=== PATIENT | female | born 1980 | race African-American/Black ===

== ENCOUNTER 2024-10-30 17:40 | Emergency (ER) | payer OTHER, SELFPAY ==
--- OUTSIDE RECORDS SUMMARY | 2024-10-30 17:43 | XMS_ITS | Clinical Summary ---
Author Organization [facility] Address [address] [place] [address] Care Team Providers Care Author'S Agent Name Role Phone Yazmin Ibarra MD Primary Care Provider [phone] Allergies No known active allergies Medications No known medications Active Problems No known active problems Social History Tobacco Use Types Packs/Day Years Used Date Smoking Tobacco: Never Smokeless Tobacco: Never Alcohol Use Standard Drinks/Week Comments No 0 (1 standard drink = 0.6 oz pur e alcohol) Comments Unknown Sex and Gender Information Value Date Recorded Sex Assigned at Not on file Legal Sex Female 5:19 PM CDT Gender Identity Not on file Sexual Orientation Not on file Last Filed Vital Signs Vital Sign Reading Time Taken Comments Blood Pressure 136/88 08/04/2017 7:09 PM CDT Pulse 67 08/04/2017 7:09 PM CDT Temperature 37.1 C (98.8 F) 08/04/2017 7:09 PM CDT Respiratory Rate 16 08/04/2017 7:09 PM CDT Oxygen Saturation 100% 08/04/2017 7:09 PM CDT Inhaled Oxygen Concentration - - Weight 54.4 kg (120 lb) 08/04/2017 7:09 PM CDT Height 165.1 cm (5' 5) 08/04/2017 7:09 PM CDT Body Mass Index 19.97 08/04/2017 7:09 PM CDT Plan of Treatment Health Maintenance Due Date Last Done Comments Cervical Cancer Screening Pa p Smear (Age 30 to 64) Every 3 Years 1980 Annual Physical 02/04/1983 Hepatitis C 02/04/1998 DTaP, Tdap and Td Vaccines ( 1 - Tdap) 02/04/1999 Hepatitis B Vaccines (1 of 3 - 19+ 3-dose series) 02/04/1999 HPV Vaccines (1 - 3-dose SCD M series) 02/04/2007 Cervical Cancer Screening Pa p with HPV Testing (Age 30 to 64) Every 5 Years 02/04/2010 Cervical Cancer Screening with HPV 02/04/2010 Mammogram Screening 2020 COVID-19 Vaccine (2023-2 5 season) 2023 Meningococcal B Vaccine Aged Out No l onger eligible based on patient's age to complete this topic Meningococcal Vaccine Aged Out No mariana pallavi eligible based on patient's age to complete this topic Pneumococcal Vaccine: Pediat rics (0 to 5 Years) and At-Risk Patients (6 to 49 Years) Aged Out No longer eligible b ased on patient's age to complete this topic RSV Immunizations Under 20 Months Aged Out No longer eligible based on patient's age to complete this topic Insurance Care Teams Author'S Agent Relationship Specialty Start Date End Date Yazmin Ibarra MD PCP - General 07/22/16
--- OUTSIDE RECORDS SUMMARY | 2024-10-30 17:43 | XMS_ITS | Clinical Summary ---
Author Organization [facility] Address [address] [place] [address] Care Team Providers Care Poultry Field Service Technician Name Role Phone Unavailable Primary Care Provider Unavailabl e Source Comments [facility],non-owned Affiliates and Associated Physician Practices is amultiple site organization consisting of ambulatory clinics and hospital sitesin [place], [place], [place] and [place]. This disclosure is being madepursuant to the Care Everywhere program and may not contain all information available regarding this patient. Last updated 17.[facility] Allergies No known active allergies Social History Tobacco Use Types Packs/Day Years Used Date Smoking Tobacco: Never Assessed Comments Unknown Sex and Gender Information Value Date Recorded Sex Assigned at Not on file Legal Sex Female 6:28 AM WORKERS COMPENSATION COORDINATOR Gender Identity Not on file Sexual Orientation Not on file Last Filed Vital Signs Vital Sign Reading Time Taken Comments Blood Pressure 129/77 09/23/2018 11:42 AM CDT Pulse 79 09/23/2018 11:42 AM CDT Temperature 37.1 C (98.7 F) 09/23/2018 8:51 AM CDT Respiratory Rate 14 09/23/2018 11:42 AM CDT Oxygen Saturation 100% 09/23/2018 11:27 AM CDT Inhaled Oxygen Concentration - - Weight 54 kg (119 lb) 09/23/2018 8:51 AM CDT Height 165.1 cm (5' 5) 09/23/2018 8:51 AM CDT Body Mass Index 19.8 09/23/2018 8:51 AM CDT Plan of Treatment Health Maintenance Due Date Last Done Comments LIPID TESTING 1980 MAMMOGRAM 1980 HIV SCREENING 02/04/1995 HEPATITIS C SCREENING 01/31/1998 DTAP/TDAP/TD VACCINES (1 - Tdap) 02/04/1999 HEPATITIS B VACCINE (1 of 3 - 19+ 3-dose series) 02/04/1999 HPV VACCINE (1 - 3-dose SCDM series) 02/04/2007 COVID-19 VACCINE (1 - 4-2 5 season) 2023 DEPRESSION SCREENING 04/07/2024 INFLUENZA VACCINE (#1) 2024 ZOSTER VACCINE (1 of 2) 02/04/2030 HIB VACCINE Aged Out No longer eligi ble based on patient's age to complete this topic MENINGOCOCCAL (Group B) VACC INE SHARED DECISION-MAKING Aged Out No longer eligibl e based on patient's age to complete this topic MENINGOCOCCAL GROUPS A/C/Y/W VACCINE Aged Out No longer eligible b ased on patient's age to complete this topic PNEUMOCOCCAL VACCINE Aged Out No long er eligible based on patient's age to complete this topic Insurance MEDICAID - [place]
--- OUTSIDE RECORDS SUMMARY | 2024-10-30 17:43 | XMS_ITS | Clinical Summary ---
Author Organization [facility] Care Team Providers Care Back Wedger Name Role Phone Unavailable Primary Care Provider Unavailabl e Social History Tobacco Use Types Packs/Day Years Used Date Smoking Tobacco: Never Assessed Comments Unknown Sex and Gender Information Value Date Recorded Sex Assigned at Not on file Legal Sex Female 1:26 PM RESIDENTIAL MENTAL HEALTH WORKER Gender Identity Not on file Sexual Orientation Not on file Plan of Treatment Health Maintenance Due Date Last Done Comments Hepatitis C Virus (HCV) Screening 1980 TdaP Immunization 1980 Human Papillomavirus (HPV) Immunization (1 - 3-dose series) 02/04/1995 Hepatitis B Immunization (1 of 3 - 19+ 3-dose series) 02/04/1999 Pap Smear 02/04/2001 Cervical Cancer Screening (CCS) 02/04/2010 HPV/Cotest 02/04/2010 SARS-COV-2 Immunization (2023- season) 2023 03/20/2021, 02/27/2021 Influenza Immunization (#1) 2024 Respiratory Syncytial Virus (RSV) Immunization (Adult) (1 - 1-dose 75+ series) 02/04/2055 Meningococcal Immunization (ACWY) Aged Out No longer eligible b ased on patient's age to complete this topic Pneumococcal Immunization Combined Aged Out No longer eligible b ased on patient's age to complete this topic Rotavirus Immunization Aged Out No lo nger eligible based on patient's age to complete this topic
--- OUTSIDE RECORDS SUMMARY | 2024-10-30 17:43 | XMS_ITS | Clinical Summary ---
Author Organization [facility] Address [address] [place] [address] Care Team Providers Care Vp Customer Development Name Role Phone Yazmin Ibarra MD Primary Care Provider [phone] Allergies No known active allergies Medications ondansetron (ZOFRAN) 4 mg tablet Take 1 tablet (4 mg total) by mouth every 6 (six) hours 12 tablet 1 Active EluRyng 0.12-0.015 mg/24 hr vaginal ring UNWRAP AND INSERT 1 RING VAGINALLY EVERY MONTH 2 Active cyclobenzaprine (FLEXERIL) 10 mg tablet Take 1 tablet (10 mg total) by mouth 2 (two) times a day as needed for muscle spasms 20 tablet 4 Active Additional Information Patient not taking.Reported on 11/21/2023 ketorolac (TORADOL) 10 mg tablet Take 1 tablet (10 mg total) by mouth every 6 (six) hours as needed for pain 20 tablet 4 Active Active Problems Problem Noted Date Diagnosed Date 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 Assessment & Plan (11/21/2023 5:30 PM CDT): Likely Started on BSABX to cover for possible infected underlying cyst or abscess Referral placed to ENT Warm compresses ER for fevers, worsening swelling, redness, drainage, Rash of both hands 06/13/2022 Assessment & Plan (06/13/2022 11:11 AM PICK UP): Macular lesions bilateral palms diffusely scattered, r/o syphilis No viral prodrome or symptoms, sick contacts or recent travel Will order RPR, HIV, Hepatitis panel, gonorrhea/chlamydia/trich urine If RPR positive, will have patient follow up with PCP for antibiotic treatment Follow up with PCP if symptoms persist Go to the ER if you develop fever, chills, night sweats, anorexia, worsening rash, headaches, confusion, vision or gait changes Rash of both feet 06/13/2022 Assessment & Plan (06/13/2022 11:11 AM PICK UP): Macular lesions bilateral soles diffusely scattered, r/o syphilis No viral prodrome or symptoms, sick contacts or recent travel Will order RPR, HIV, Hepatitis panel, gonorrhea/chlamydia/trich urine If RPR positive, will have patient follow up with PCP for antibiotic treatment Follow up with PCP if symptoms persist Go to the ER if you develop fever, chills, night sweats, anorexia, worsening rash, headaches, confusion, vision or gait changes 05/11/2012 Resolved Problems Problem Noted Date Diagnosed Date Resolved Date Popping of right ear 11/21/2023 024 Social History Tobacco Use Types Packs/Day Years Used Date Smoking Tobacco: Never Tobacco Cessation:Counseling Given: Not Answered Alcohol Use Standard Drinks/Week Comments Never 0 (1 standard drink = 0.6 oz pur e alcohol) Personal Safety Answer Date Recorded Have you ever been in or are you currently in a harmful physical or emotional relationship or is someone making you feel afraid or unsafe? Denies 06/20/2024 Comments No Sex and Gender Information Value Date Recorded Sex Assigned at Not on file Legal Sex Female 1:37 AM PICK UP Gender Identity Not on file Sexual Orientation Not on file Obstetrics History Last Filed Vital Signs Vital Sign Reading Time Taken Comments Blood Pressure 168/99 06/20/2024 6:07 PM CDT Pulse 84 06/20/2024 6:07 PM CDT Temperature 37 C (98.6 F) 06/20/2024 6:07 PM CDT Respiratory Rate 18 06/20/2024 6:07 PM CDT Oxygen Saturation 98% 06/20/2024 6:07 PM CDT Inhaled Oxygen Concentration - - Weight 60.9 kg (134 lb 4.2 oz) 06/20/2024 6:07 P M CDT Height 165.1 cm (5' 5) 06/20/2024 6:07 PM CDT Body Mass Index 22.34 06/20/2024 6:07 PM CDT Plan of Treatment Health Maintenance Due Date Last Done Comments Breast Cancer Screening-Mammogram 1980 Cervical Cancer Screening 1980 Depression Screening 1980 DTaP/Tdap/Td Vaccine (1 - Tdap) 02/04/1991 Varicella Vaccines (1 of 2 - 13+ 2-dose series) 02/04/1993 Hepatitis B Screening 02/04/1998 Regular Well Visit/Exam 18-64 02/04/1998 HPV Vaccines (1 - 3-dose SCD M series) 02/04/2007 Covid-19 Vaccine ( - 2023-2 5 season) 2023 03/20/2021, 02/27/2021 Influenza Vaccine (#1) 2024 Hepatitis C Screening Completed 06/13/2022 Pneumococcal vaccine <65 Aged Out No longer eligible based on patient's age to complete this topic Procedures Procedure Name Priority Date/Time Associated Diagnosis Comments HEPATITIS PANEL, ACUTE Routine 06/13/2022 11:48 AM PICK UP Rash of both hands Rash of both feet from Last 3 Months or Most Recently Relevant to Health Maintenance Results * Hepatitis panel, acute (06/13/2022 11:48 AM PICK UP) Hep A IgM Nonreactive Nonreactive FREDI Comment: Interpretive Data: If Hep A IgM Ab is reported as Equivocal, a new sample should be drawn in two weeks for testing. Current interpretive data was last revised on 19. Hep B core IgM Nonreactive Nonreactive FREDI Comment: Interpretive Data If HepB Core IgM Ab is reported as Equivocal, a new sample should be drawn in two weeks for testing. Current interpretive data was last revised on 19. Hep C Ab Nonreactive Nonreactive FREDI Comment: Interpretive Data Nonreactive: Antibodies to HCV not detected. Does NOT exclude the possibility of recent exposure to HCV. Equivocal: Equivocal for HCV antibodies. Supplemental molecular testing will be automatically performed to determine infection status in accordance with current CDC screening recommendations. Reactive: Positive for HCV antibodies. This may represent current or past HCV infection. Supplemental molecular testing will be automatically performed to determine current infection status in accordance with current CDC screening recommendations. Interpretive data was last revised on 2019. HepBsAg Nonreactive Nonreactive FREDI PARDO Blood 06/13/2022 11:4 8 AM PICK UP 06/13/2022 4:49 PM PICK UP [facility] MICROBIOLOGY - GENERAL O RDERABLES Final Result FREDI [address] Department [place] [address] from Last 3 Months or Most Recently Relevant to Health Maintenance Insurance [facility] Care Teams Vp Customer Development Relationship Specialty Start Date End Date Yazmin Ibarra MD [address] [place] [address] PCP - General 09/22/18
--- OUTSIDE RECORDS SUMMARY | 2024-10-30 17:43 | XMS_ITS | Referral Summary ---
Author Organization [facility] Address [address] [place] [address] Care Team Providers Care Chain Splitter Name Role Phone Yazmin Ibarra MD Primary Care Provider [phone] Allergies No known active allergies Medications ondansetron [...] 06/13/2022 Assessment & Plan (06/13/2022 11:11 AM SAFE TECHNICIAN): Macular lesions bilateral palms diffusely scattered, r/o [...] 06/13/2022 Assessment & Plan (06/13/2022 11:11 AM SAFE TECHNICIAN): Macular lesions bilateral soles diffusely scattered, r/o [...] on file Legal Sex Female 1:37 AM SAFE TECHNICIAN Gender Identity Not on file Sexual Orientation [...] 06/20/2024 6:07 PM CDT Plan of Treatment Not on file Procedures Procedure Name Priority Date/Time Associated Diagnosis Comments HEPATITIS PANEL, ACUTE Routine 06/13/2022 11:48 AM SAFE TECHNICIAN Rash of both hands Rash of both feet from Last 3 Months or Most Recently Relevant to Health Maintenance Results * Hepatitis panel, acute (06/13/2022 11:48 AM SAFE TECHNICIAN) Hep A IgM Nonreactive Nonreactive FREDI Comment: [...] revised on 2019. HepBsAg Nonreactive Nonreactive [facility] Blood 06/13/2022 11:4 8 AM SAFE TECHNICIAN 06/13/2022 4:49 PM SAFE TECHNICIAN us [facility] MICROBIOLOGY - GENERAL O RDERABLES Final Result [facility] [address] Department of Laboratories [place], [place] [id number] from Last 3 Months or Most Recently Relevant to Health Maintenance Insurance [facility] Care Teams Chain Splitter Relationship Specialty Start Date End Date Yazmin Ibarra MD [address] [place] [address] PCP - General 09/22/18
[2024-10-30 17:57] VITALS: BP 160/117; PULSE 95; RESP 16; TEMP 36.4; O2SAT 100
--- NOTE | 2024-10-30 18:39 | ED.PSYCH ---
HPI - Psych General Chief Complaint: Psychiatric Symptoms Stated Complaint: I feel like I'm having a mental breakdown Time Seen by Provider: 10/30/24 18:20 Source: patient and RN notes reviewed Mode of arrival: ambulatory Limitations: no limitations History of Present Illness HPI Narrative: 44 y/o AAF in the ED for feelings of depression. Pt states she has had numerous stressors over the last 3-4 months. Had a cousin diagnosed w/ cancer, recently bought a house, broke up w/ her fiance. Pt states she had a singular bout of uncontrollable crying and thought she needed to be seen. Pt states she thinks the symptoms have resolved at this time, feels she thinks she needed to have a good cry. Pt denies SI/HI, denies hx of depression or other MH conditions. Pt was being prescribed a medicine briefly for anxiety over a year ago, but only took med a couplke times before stopping. Pt denies seeing MH provider or therapist. Related Data Allergies Allergy/AdvReac Type Severity Reaction Status Date / Time No Known Allergies Allergy Verified 10/30/24 18:02 Review of Systems Review of Systems: CONSTITUTIONAL: Denies fever, chills, or sweats. EYES: Denies visual changes, redness, or discharge. ENT: Denies rhinorrhea, congestion, sore throat, or otalgia. CARDIOVASCULAR: Denies chest pain, palpitations, or edema. RESPIRATORY: Denies cough or dyspnea. GASTROINTESTINAL: Denies abdominal pain, nausea, vomiting, or diarrhea. GENITOURINARY: Denies dysuria or hematuria. SKIN: Denies rash or itching. MUSCULOSKELETAL: Denies back pain, joint pain, or myalgia. NEUROLOGIC: Denies headache, numbness, or weakness. PSYCHIATRIC: Denies anxiety or depression. Endorses one episode of crying. Exam Narrative: GENERAL: Well-appearing, well-nourished, and in no acute distress. HEAD: Normocephalic, atraumatic. EYES: PERRLA and EOMI. ENT: Nares clear, no rhinorrhea or epistaxis. Mucous membranes moist. NECK: Supple. CHEST: Clear to auscultation. No respiratory distress. HEART: Regular rate and rhythm. No murmur heard. Normal peripheral pulses. ABDOMEN: Soft, nontender, nondistended, normal active bowel sounds. EXTREMITIES: Normal range of motion. No edema. SKIN: Warm, dry, no rash. NEURO: No focal deficits. Alert and oriented x3. PSYCH: Normal mood and affect, Denies SI/HI. Course Vital Signs Vital signs: Vital Signs Temperature 36.4 C L 10/30/24 17:57 Pulse Rate 95 10/30/24 17:57 Respiratory Rate 16 10/30/24 17:57 Blood Pressure 160/117 H 10/30/24 17:57 Pulse Oximetry 100 10/30/24 17:57 Oxygen Delivery Room Air 10/30/24 17:57 Temperature 36.4 C L 10/30/24 17:57 Pulse Rate 95 10/30/24 17:57 Respiratory Rate 16 10/30/24 17:57 Blood Pressure 160/117 H 10/30/24 17:57 Pulse Oximetry 100 10/30/24 17:57 Oxygen Delivery Room Air 10/30/24 17:57 MDM - Psych MDM Narrative Medical decision making narrative: HPI: 44 y/o AAF in the ED for feelings of depression. Pt states she has had numerous stressors over the last 3-4 months. Had a cousin diagnosed w/ cancer, recently bought a house, broke up w/ her fiance. Pt states she had a singular bout of uncontrollable crying and thought she needed to be seen. Pt states she thinks the symptoms have resolved at this time, feels she thinks she needed to have a good cry. Pt denies SI/HI, denies hx of depression or other MH conditions. Pt was being prescribed a medicine briefly for anxiety over a year ago, but only took med a couplke times before stopping. Pt denies seeing MH provider or therapist. My Plan Labs Ordered: None Imaging Ordered: None Medications Ordered: None Results: N/A Diagnosis: Stress Risks: HEART score, PECARN score, CURB-65 score Consults: None Patient has no SI/HI, denies drug and alcohol use. Denies history of SI or attempt. Patient states this is a singular episode of crying and would like to see her primary care provider for further options. Pt states she has 2 children at her home, 4 children total, that she cares for and is not willing to harm herself. Discussed getting a therapist the patient can talk about and deal with her stress. PHQ-9 of 1, negative CSSRS. Release patient to primary care, patient to call Friday morning. Patient to contact her insurance to find out what therapist is available on her insurance. Noted blood pressure elevation on arrival. Patient denies hypertension and/or meds for treatment of hypertension. States that she usually gets white coat hypertension whenever she goes into the hospital or to her primary care doctor's office. Patient states that in the office it is elevated and has been checked numerous times at home and is usually normal, requiring no medication. Patient will continue to monitor her blood pressure and notify her primary care doctor if continued hypertension. Differential Diagnosis Differential diagnosis: Likely suicidal ideation, depression and acute anxiety Medical Records Attestation: I reviewed the patient's medical records. Discharge Plan Discharge Clinical Impression: Stress Patient Disposition: Home Condition: Stable Instructions: Antibiotic Form, Stress (ED) Additional Instructions: Please return to the ER with any worsening symptoms. ?Follow-up with primary care provider as soon as possible. ?Take all medications as prescribed, including regularly scheduled medications. Please return to the ER if worsening depressive symptoms or suicidal thoughts. If you need help the crisis suicide hotline is 988 on your phone. In addition to follow up with her primary care doctor I suggest you obtain a therapist to talk about any issues you have. Patient Language: Macanese Follow-up/Referrals: PHYSICIAN NOT ON STAFF,NONSTAFF [Primary Care Provider] - 1 Week
--- OUTSIDE RECORDS SUMMARY | 2024-10-30 19:20 | XMS_ITS | Clinical Summary ---
Author Organization [facility] Address [address] [place] [address] Care Team Providers Care Geoscience Professor Name Role Phone Unavailable Primary Care Provider Unavailabl e Source Comments [facility],non-owned Affiliates and Associated Physician Practices is amultiple site organization consisting of ambulatory clinics and hospital sitesin [place], [place], [place] and [place]. This disclosure is being madepursuant to the Care Everywhere program and may not contain all information available regarding this patient. Last updated 17.[facility] Allergies No known active allergies Social History Tobacco Use Types Packs/Day Years Used Date Smoking Tobacco: Never Assessed Comments Unknown Sex and Gender Information Value Date Recorded Sex Assigned at Not on file Legal Sex Female 6:28 AM SOFTWARE DATABASE ARCHITECT Gender Identity Not on file Sexual Orientation [...]
--- OUTSIDE RECORDS SUMMARY | 2024-10-30 19:20 | XMS_ITS | Clinical Summary ---
Author Organization [facility] Care Team Providers Care Top Installer Name Role Phone Unavailable Primary Care Provider Unavailabl e Social History Tobacco Use Types Packs/Day Years Used Date Smoking Tobacco: Never Assessed Comments Unknown Sex and Gender Information Value Date Recorded Sex Assigned at Not on file Legal Sex Female 1:26 PM REGIONAL DIRECTOR OF ADMISSIONS Gender Identity Not on file Sexual Orientation [...]
--- OUTSIDE RECORDS SUMMARY | 2024-10-30 19:20 | XMS_ITS | Clinical Summary ---
Author Organization [facility] Address [address] [place] [address] Care Team Providers Care Casting Room Operator Name Role Phone Yazmin Ibarra MD Primary Care Provider [phone] Allergies No known active allergies Medications ondansetron [...] 06/13/2022 Assessment & Plan (06/13/2022 11:11 AM AIR EXPORT COORDINATOR): Macular lesions bilateral palms diffusely scattered, r/o [...] 06/13/2022 Assessment & Plan (06/13/2022 11:11 AM AIR EXPORT COORDINATOR): Macular lesions bilateral soles diffusely scattered, r/o [...] on file Legal Sex Female 1:37 AM AIR EXPORT COORDINATOR Gender Identity Not on file Sexual [...] HEPATITIS PANEL, ACUTE Routine 06/13/2022 11:48 AM AIR EXPORT COORDINATOR Rash of both hands Rash of both feet from Last 3 Months or Most Recently Relevant to Health Maintenance Results * Hepatitis panel, acute (06/13/2022 11:48 AM AIR EXPORT COORDINATOR) Hep A IgM Nonreactive Nonreactive FREDI Comment: [...] FREDI PARDO Blood 06/13/2022 11:4 8 AM AIR EXPORT COORDINATOR 06/13/2022 4:49 PM AIR EXPORT COORDINATOR [facility] MICROBIOLOGY - GENERAL O RDERABLES Final Result [facility] [address] [facility] Department [place] [address] from Last 3 Months or Most Recently Relevant to Health Maintenance Insurance [facility] Care Teams Casting Room Operator Relationship Specialty Start Date End Date Yazmin Ibarra MD [address] [place] [address] PCP - General 09/22/18
--- OUTSIDE RECORDS SUMMARY | 2024-10-30 19:20 | XMS_ITS | Referral Summary ---
Author Organization [facility] Address [address] [place] [address] Care Team Providers Care Sql Etl Developer Name Role Phone Yazmin Ibarra MD Primary Care Provider [phone] Allergies No known active allergies Medications ondansetron [...] 06/13/2022 Assessment & Plan (06/13/2022 11:11 AM PAINT AND TABLE EDGER): Macular lesions bilateral palms diffusely scattered, r/o [...] 06/13/2022 Assessment & Plan (06/13/2022 11:11 AM PAINT AND TABLE EDGER): Macular lesions bilateral soles diffusely scattered, r/o [...] on file Legal Sex Female 1:37 AM PAINT AND TABLE EDGER Gender Identity Not on file Sexual Orientation [...] HEPATITIS PANEL, ACUTE Routine 06/13/2022 11:48 AM PAINT AND TABLE EDGER Rash of both hands Rash of both feet from Last 3 Months or Most Recently Relevant to Health Maintenance Results * Hepatitis panel, acute (06/13/2022 11:48 AM PAINT AND TABLE EDGER) Hep A IgM Nonreactive Nonreactive [facility] Comment: [...] Nonreactive [facility] Blood 06/13/2022 11:4 8 AM PAINT AND TABLE EDGER 06/13/2022 4:49 PM PAINT AND TABLE EDGER us [facility] MICROBIOLOGY - GENERAL O RDERABLES Final Result [facility] [id number] [facility] Department of Laboratories [place], [place] [id number] from Last 3 Months or Most Recently Relevant to Health Maintenance Insurance [facility] Care Teams Sql Etl Developer Relationship Specialty Start Date End Date Yazmin Ibarra MD [address] [place] [address] PCP - General 09/22/18
--- OUTSIDE RECORDS SUMMARY | 2024-10-30 19:20 | XMS_ITS | Clinical Summary ---
Author Organization [facility] Address [address] [place] [address] Care Team Providers Care Clean Out Driller Name Role Phone Yazmin Ibarra MD Primary Care Provider [phone] Allergies No known active allergies Medications No [...] to complete this topic Insurance Care Teams Clean Out Driller Relationship Specialty Start Date End Date Yazmin Ibarra MD PCP - General 07/22/16
== END 2024-10-30 19:20 | disposition home or self-care (01) ==
LOC: ANHED 19:18
PROVIDERS: Emergency Provider Registered Nurse Emergency
DX: F43.9 Reaction to severe stress, unspecified (principal)
CPT/HCPCS: 99281

== ENCOUNTER 2024-11-19 17:49 | Emergency (ER) | payer OTHER, SELFPAY ==
--- OUTSIDE RECORDS SUMMARY | 2024-11-19 17:51 | XMS_ITS | Clinical Summary ---
Author Organization [facility] Care Team Providers Care Flight Communications Officer Name Role Phone Unavailable Primary Care Provider Unavailabl e Social History Tobacco Use Types Packs/Day Years Used Date Smoking Tobacco: Never Assessed Comments Unknown Sex and Gender Information Value Date Recorded Sex Assigned at Not on file Legal Sex Female 1:26 PM TECHNICAL DOCUMENTATION SPECIALIST Gender Identity Not on file Sexual Orientation Not on file Plan of Treatment Health Maintenance Due Date Last Done Comments Hepatitis C Virus (HCV) Screening 1980 TdaP Immunization 1980 Hepatitis B Immunization (1 of 3 - 19+ 3-dose series) 02/04/1999 Pap Smear 02/04/2001 Human Papillomavirus (HPV) Immunization (1 - 3-dose SCDM series) 02/04/2007 Cervical Cancer Screening (CCS) 02/04/2010 HPV/Cotest 02/04/2010 SARS-COV-2 Immunization ( season) 2023 03/20/2021, 02/27/2021 Influenza Immunization (#1) [...]
--- OUTSIDE RECORDS SUMMARY | 2024-11-19 17:51 | XMS_ITS | Encounter Summary ---
Author Organization [facility] Address [address] [place] [address] Care Team Providers Care Road Advisor Name Role Phone Yazmin Ibarra MD Primary Care Provider [phone] Encounter Details Date Type Department Care Team ([facility] Contact Info) Description 11/12/2024 Telephone [facility] Emergency Department [address] [place] [address] Jovita Rushing RN Social History Tobacco Use Types Packs/Day Years Used Date Smoking Tobacco: Never Alcohol Use Standard Drinks/Week Comments Never 0 (1 standard drink = 0.6 oz pur e alcohol) Personal Safety Answer Date Recorded Have you ever been in or are you currently in a harmful physical or emotional relationship or is someone making you feel afraid or unsafe? Denies 11/12/2024 Comments No Sex and Gender Information Value Date Recorded Sex Assigned at Not on file Legal Sex Female 1:37 AM MEDICAL REVIEW COORDINATOR Gender Identity Not on file Sexual Orientation Not on file documented as of this encounter Plan of Treatment Not on file documented as of this encounter Visit Diagnoses Not on filedocumented in this encounter Care Teams Road Advisor Relationship Specialty Start Date End Date Yazmin Ibarra MD [address] [place] [address] PCP - General 09/22/18 documented as of this encounter
--- OUTSIDE RECORDS SUMMARY | 2024-11-19 17:52 | XMS_ITS | Clinical Summary ---
Author Organization [facility] Address [address] [place] [address] Care Team Providers Care Diesel Truck Driver Name Role Phone Unavailable Primary Care Provider Unavailabl e Source Comments [facility],non-owned Affiliates and Associated Physician Practices is amultiple site organization consisting of ambulatory clinics and hospital sitesin [place], [place], [place] and [place]. This disclosure is being madepursuant to the Care Everywhere program and may not contain all information available regarding this patient. Last updated 17.[facility] Allergies No known active allergies Social History Tobacco Use Types Packs/Day Years Used Date Smoking Tobacco: Never Assessed Comments Unknown Sex and Gender Information Value Date Recorded Sex Assigned at Not on file Legal Sex Female 6:28 AM DISTRICT GAUGER Gender Identity Not on file Sexual Orientation [...]
--- OUTSIDE RECORDS SUMMARY | 2024-11-19 17:52 | XMS_ITS | Clinical Summary ---
Author Organization [facility] Address [address] [place] [address] Care Team Providers Care Arresting Gear Operator Name Role Phone Yazmin Ibarra MD Primary Care Provider [phone] Allergies No known active allergies Medications No [...] to complete this topic Insurance Care Teams Arresting Gear Operator Relationship Specialty Start Date End Date Yazmin Ibarra MD PCP - General 07/22/16
--- OUTSIDE RECORDS SUMMARY | 2024-11-19 17:52 | XMS_ITS | Clinical Summary ---
Author Organization [facility] Address [address] [place] [address] Care Team Providers Care Mixing Plant Dumper Name Role Phone Yazmin Ibarra MD Primary Care Provider [phone] Allergies No known active allergies Medications ondansetron (ZOFRAN) 4 mg tablet Take 1 tablet (4 mg total) by mouth every 6 (six) hours 12 tablet 11/16/19 21 Active EluRyng 0.12-0.015 mg/24 hr vaginal ring UNWRAP AND INSERT 1 RING VAGINALLY EVERY MONTH 03/26/20 22 Active cyclobenzaprin e (FLEXERIL) 10 mg tablet Take 1 tablet (10 mg total) by mouth 2 (two) times a day as needed for muscle spasms 20 tablet 04/24/19 24 Active Additional Information Patient not taking.Reported on 11/21/2023 ketorolac (TORADOL) 10 mg tablet Take 1 tablet (10 mg total) by mouth every 6 (six) hours as needed for pain 20 tablet 01/24/20 24 Active lidocaine (LIDODERM) 5 %Indications:P ain Place 1 patch on the skin daily for 12 hours Use patch for 12 hours on, 12 hours off. Discard after each use 7 patch 11/13/19 25 Active ketorolac (TORADOL) 10 mg tablet Take 1 tablet (10 mg total) by mouth every 6 (six) hours as needed for pain 20 tablet 11/13/19 25 Active ketorolac (TORADOL) 10 mg tablet Take 1 tablet (10 mg total) by mouth every 6 (six) hours as needed for pain 20 tablet 11/13/19 25 025 Discontinued lidocaine (LIDODERM) 5 %Indications:P ain Place 1 patch on the skin daily for 12 hours Use patch for 12 hours on, 12 hours off. 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 Assessment & Plan (11/21/2023 5:30 PM CDT): Likely Started on BSABX to cover for possible infected underlying cyst or abscess Referral placed to ENT Warm compresses ER for fevers, worsening swelling, redness, drainage, Rash of both hands 06/13/2022 Assessment & Plan (06/13/2022 11:11 AM INSPECTOR METAL CAN): Macular lesions bilateral palms diffusely scattered, r/o [...] 06/13/2022 Assessment & Plan (06/13/2022 11:11 AM INSPECTOR METAL CAN): Macular lesions bilateral soles diffusely scattered, r/o [...] Date Popping of right ear 11/21/2023 024 Encounters Date Type Department Care Team Description 11/12/2024 4:45 PM CDT - 11/12/2024 7:06 PM CDT Emergency [facility] Emergency Department [address] [place] [address] Chronic back pain, unspecified back location, unspecified back pain laterality (Primary Dx) Discharge Disposition: Discharge to home or self care 11/12/2024 [facility] Emergency Department [address] [place] [address] Jovita Rushing RN from Last 3 Months Social History Tobacco Use Types Packs/Day Years [...] on file Legal Sex Female 1:37 AM INSPECTOR METAL CAN Gender Identity Not on file Sexual Orientation Not on file Obstetrics History Last Filed Vital Signs Vital Sign Reading Time Taken Comments Blood Pressure 132/87 11/12/2024 7:05 PM CDT Pulse 72 11/12/2024 7:05 PM CDT Temperature 36.7 C (98 F) 11/12/2024 4:43 PM CDT Respiratory Rate 18 11/12/2024 7:05 PM CDT Oxygen Saturation 99% 11/12/2024 7:05 PM CDT Inhaled Oxygen Concentration - - Weight 61.4 kg (135 lb 5.8 oz) 11/12/2024 4:43 P M CDT Height 165.1 cm (5' 5) 11/12/2024 4:43 PM CDT Body Mass Index 22.53 11/12/2024 4:43 PM CDT Plan of Treatment Health Maintenance Due Date Last Done Comments Breast Cancer Screening-Mammogram 1980 Cervical Cancer Screening 1980 Depression Screening 1980 DTaP/Tdap/Td Vaccine (1 - Tdap) 02/04/1991 Varicella Vaccines (1 of 2 - 13+ 2-dose series) 02/04/1993 Hepatitis B Screening 02/04/1998 Regular Well Visit/Exam 18-64 02/04/1998 HPV Vaccines (1 - 3-dose SCD M series) 02/04/2007 Covid-19 Vaccine (3 - 2024-2 5 season) 2023 03/20/2021, 02/27/2021 Influenza Vaccine (#1) 2024 Hepatitis C Screening Completed 06/13/2022 Pneumococcal vaccine <65 Aged Out No longer eligible based on patient's age to complete this topic Procedures Procedure Name Priority Date/Time Associated Diagnosis Comments XR SPINE LUMBAR 2 OR 3 VIEWS ED 11/12/2024 5:14 PM CDT HEPATITIS PANEL, ACUTE Routine 06/13/2022 11:48 AM INSPECTOR METAL CAN Rash of both hands Rash of both feet from Last 3 Months or Most Recently Relevant to Health Maintenance Results * XR Spine Lumbar 2 or 3 Views (11/12/2024 5:14 PM CDT) Anatomical Region Laterality Modality Spine N/A Computed Radiogr aphy 11/12/2024 6:35 PM CDT Narrative 11/12/2024 6:36 PM CDT EXAM DESCRIPTION: XR SPINE LUMBAR 2 OR 3 VIEWS REASON FOR STUDY: Acute low back pain today. No provided history of trauma or inciting and/or aggravating events. TECHNIQUE: 3 radiographic view(s) of the lumbar spine. COMPARISON: Lumbar spine radiograph 04/24/2023; relevant portions of CT abdomen pelvis 09/23/2022. FINDINGS: ALIGNMENT: Anatomic. VERTEBRAE: No radiographic evidence subacute fracture. Vertebral body heights maintained. Facet joints maintained. DISCS: Intervertebral disc heights maintained. SOFT TISSUES: No acute abnormality. IMPRESSION: No radiographic evidence subacute fracture or subluxation of the lumbar spine. THIS IS AN ELECTRONICALLY VERIFIED FINAL REPORT 11/12/2024 6:36 PM - Electronically signed by Jason Lyn M.D. LORELEI: LORELEI Report ID: [id number] Reading Location: [id number] Procedure Note Jason Lyn MD - 11/12/2024 EXAM DESCRIPTION: XR SPINE LUMBAR 2 OR 3 VIEWS REASON FOR STUDY: Acute low back pain today. No provided history oftrauma or inciting and/or aggravating events. TECHNIQUE: 3 radiographic view(s) of the lumbar spine. COMPARISON: Lumbar spine radiograph 04/24/2023; relevant portions of CT abdomen pelvis 09/23/2022. FINDINGS: ALIGNMENT: Anatomic. VERTEBRAE: No radiographic evidence subacute fracture. Vertebral bodyheights maintained. Facet joints maintained. DISCS: Intervertebral disc heights maintained. SOFT TISSUES: No acute abnormality. IMPRESSION: No radiographic evidence subacute fracture or subluxation ofthe lumbar spine. THIS IS AN ELECTRONICALLY VERIFIED FINAL REPORT 11/12/2024 6:36 PM - Electronically signed by Jason Lyn M.D. LORELEI: LORELEI Report ID: [id number] Reading Location: [place] [address] [facility] IMG XR PROCEDURES Final Result * Hepatitis panel, acute (06/13/2022 11:48 AM INSPECTOR METAL CAN) Hep A IgM Nonreactive Nonreactive [facility] Comment: Interpretive Data: If Hep A IgM Ab is reported as Equivocal, a new sample should be drawn in two weeks for testing. Current interpretive data was last revised on 19. Hep B core IgM Nonreactive Nonreactive [facility] Comment: Interpretive Data If HepB Core IgM Ab is reported as Equivocal, a new sample should be drawn in two weeks for testing. Current interpretive data was last revised on 19. Hep C Ab Nonreactive Nonreactive [facility] Comment: Interpretive Data Nonreactive: Antibodies to HCV [...] last revised on 2019. HepBsAg Nonreactive Nonreactive [facility] Blood 06/13/2022 11:4 8 AM INSPECTOR METAL CAN 06/13/2022 4:49 PM INSPECTOR METAL CAN [facility] MICROBIOLOGY - GENERAL O RDERABLES Final Result [facility] [address] [facility] Department [place] [address] from Last 3 Months or Most Recently Relevant to Health Maintenance Insurance [facility] Care Teams Mixing Plant Dumper Relationship Specialty Start Date End Date Yazmin Ibarra MD [address] [place] [address] PCP - General 09/22/18
[2024-11-19 18:07] VITALS: BP 151/100; PULSE 100; RESP 16; TEMP 36.6; O2SAT 100
--- OUTSIDE RECORDS SUMMARY | 2024-11-19 18:19 | XMS_ITS | Clinical Summary ---
Author Organization [facility] Address [address] [place] [address] Care Team Providers Care Senior Payroll Administrator Name Role Phone Yazmin Ibarra MD Primary Care Provider [phone] Allergies No known active allergies Medications ondansetron [...] 06/13/2022 Assessment & Plan (06/13/2022 11:11 AM SHUTTLE CAR OPERATOR): Macular lesions bilateral palms diffusely scattered, r/o [...] 06/13/2022 Assessment & Plan (06/13/2022 11:11 AM SHUTTLE CAR OPERATOR): Macular lesions bilateral soles diffusely scattered, r/o [...] CDT - 11/12/2024 7:06 PM CDT Emergency [facility] Emergency Department [address] [place] [address] Chronic back pain, unspecified back location, unspecified back pain laterality (Primary Dx) Discharge Disposition: Discharge to home or self care 11/12/2024 [facility] Emergency Department [address] [place] [address] Jovita Rushing RN from Last 3 Months [...] on file Legal Sex Female 1:37 AM SHUTTLE CAR OPERATOR Gender Identity Not on file Sexual Orientation [...] HEPATITIS PANEL, ACUTE Routine 06/13/2022 11:48 AM SHUTTLE CAR OPERATOR Rash of both hands Rash of both [...] Jason Lyn M.D. LORELEI: LORELEI Report ID: [id number] Reading Location: [id number] Procedure Note Jason Lyn MD - 11/12/2024 [...] Jason Lyn M.D. LORELEI: LORELEI Report ID: [id number] Reading Location: [place] [address] Ros[facility] IMG XR PROCEDURES Final Result * Hepatitis panel, acute (06/13/2022 11:48 AM SHUTTLE CAR OPERATOR) Hep A IgM Nonreactive Nonreactive [facility] Comment: Interpretive Data: If Hep A IgM Ab is reported as Equivocal, a new sample should be drawn in two weeks for testing. Current interpretive data was last revised on 19. Hep B core IgM Nonreactive Nonreactive [facility] Comment: Interpretive Data If HepB Core IgM Ab is reported as Equivocal, a new sample should be drawn in two weeks for testing. Current interpretive data was last revised on 19. Hep C Ab Nonreactive Nonreactive [facility] Comment: Interpretive Data Nonreactive: Antibodies to HCV [...] last revised on 2019. HepBsAg Nonreactive Nonreactive [facility] Blood 06/13/2022 11:4 8 AM SHUTTLE CAR OPERATOR 06/13/2022 4:49 PM SHUTTLE CAR OPERATOR [facility] MICROBIOLOGY - GENERAL O RDERABLES Final Result [facility] [address] [facility] Department [place] [address] from Last 3 Months or Most Recently Relevant to Health Maintenance Insurance [facility] Care Teams Senior Payroll Administrator Relationship Specialty Start Date End Date Yazmin Ibarra MD [address] [place] [address] PCP - General 09/22/18
--- OUTSIDE RECORDS SUMMARY | 2024-11-19 18:19 | XMS_ITS | Encounter Summary ---
Author Organization [facility] Healthcare Address [address] [place] [address] Care Team Providers Care Him Specialists Name Role Phone Yazmin Ibarra MD Primary Care Provider [phone] Encounter Details Date Type Department Care Team ([facility] Contact Info) Description 11/12/2024 Telephone [facility] Emergency Department [address] [place] [address] Jovita Rushing RN Social History [...] on file Legal Sex Female 1:37 AM CHANNEL SUPERVISOR Gender Identity Not on file Sexual Orientation Not on file documented as of this encounter Plan of Treatment Not on file documented as of this encounter Visit Diagnoses Not on filedocumented in this encounter Care Teams Him Specialists Relationship Specialty Start Date End Date Yazmin Ibarra MD [address] [place] [address] PCP - General 09/22/18 documented as of this encounter
--- OUTSIDE RECORDS SUMMARY | 2024-11-19 18:19 | XMS_ITS | Clinical Summary ---
Author Organization [facility] Address [address] [place] [address] Care Team Providers Care Soldering Inspector Name Role Phone Yazmin Ibarra MD Primary Care Provider [phone] Allergies No known active allergies Medications No [...] to complete this topic Insurance Care Teams Soldering Inspector Relationship Specialty Start Date End Date Yazmin Ibarra MD PCP - General 07/22/16
--- OUTSIDE RECORDS SUMMARY | 2024-11-19 18:19 | XMS_ITS | Clinical Summary ---
Author Organization [facility] Care Team Providers Care Fun House Attendant Name Role Phone Unavailable Primary Care Provider Unavailabl e Social History Tobacco Use Types Packs/Day Years Used Date Smoking Tobacco: Never Assessed Comments Unknown Sex and Gender Information Value Date Recorded Sex Assigned at Not on file Legal Sex Female 1:26 PM LOGISTICS SUPPLY OFFICER Gender Identity Not on file Sexual Orientation [...]
--- OUTSIDE RECORDS SUMMARY | 2024-11-19 18:19 | XMS_ITS | Clinical Summary ---
Author Organization [facility] Address [address] [address] Care Team Providers Care Upholstered Goods Crafter Name Role Phone Unavailable Primary Care Provider Unavailabl e Source Comments [facility],non-owned Affiliates and Associated Physician Practices is amultiple site organization consisting of ambulatory clinics and hospital sitesin [place], [place], [place] and [place]. This disclosure is being madepursuant to the Care Everywhere program and may not contain all information available regarding this patient. Last updated 17.[facility] Allergies No known active allergies Social History Tobacco Use Types Packs/Day Years Used Date Smoking Tobacco: Never Assessed Comments Unknown Sex and Gender Information Value Date Recorded Sex Assigned at Not on file Legal Sex Female 6:28 AM CREWMAN MAIN BATTLE TANK Gender Identity Not on file Sexual Orientation [...]
--- NOTE | 2024-11-19 19:09 | ED_ITS ---
HPI - Back Pain/Injury General Chief Complaint: Back Pain/Injury Stated Complaint: BACK PAIN Time Seen by Provider: 11/19/24 18:08 Source: patient Mode of arrival: ambulatory Limitations: no limitations History of Present Illness HPI Narrative: This is a 44-year-old female that presents to the emergency department for low back pain. Reports this is a chronic issue for her. Reports acute exacerbation ongoing over the last week. Reports no recent injuries. She was seen at another ER for this and had x-rays of her low back. Presents today for pain control. She has not taken anything today for pain. Denies saddle anesthesia, bowel/bladder incontinence. Related Data Allergies Allergy/AdvReac Type Severity Reaction Status Date / Time No Known Allergies Allergy Verified 10/30/24 18:02 Review of Systems Review of Systems: All systems reviewed & are unremarkable except as noted in HPI and below PMFSH Social History Social History Substance use type: does not use Exam Narrative: GENERAL: Well-appearing, well-nourished, and in no acute distress. HEAD: Normocephalic, atraumatic. EYES: EOMI. CHEST: Clear to auscultation. No respiratory distress. No wheezes rales or rhonchi HEART: Regular rate and rhythm. No murmur heard. Normal peripheral pulses. EXTREMITIES: Normal range of motion. No edema. Strength equal in bilateral lower extremities (5/5) SKIN: Warm, dry, no rash. NEURO: No focal deficits. Alert and oriented x3. PSYCH: Normal mood and affect Course Vital Signs Vital signs: Vital Signs Temperature 97.9 F 11/19/24 18:07 Pulse Rate 100 11/19/24 18:07 Respiratory Rate 16 11/19/24 18:07 Blood Pressure 151/100 H 11/19/24 18:07 Pulse Oximetry 100 11/19/24 18:07 Temperature 97.9 F 11/19/24 18:07 Pulse Rate 100 11/19/24 18:07 Respiratory Rate 16 11/19/24 18:07 Blood Pressure 151/100 H 11/19/24 18:07 Pulse Oximetry 100 11/19/24 18:07 MDM - Back Pain/Injury MDM Narrative Medical decision making narrative: Patient presents the emergency department for low back pain. Reports acute on chronic. No recent injuries or trauma. Denies saddle anesthesia, bowel/bladder incontinence. She is neurovascularly intact. Refused any imaging. Given pain control in the ED. Discharged with follow-up for neurosurgery. She was given warnings to return to the ER Differential Diagnosis Differential diagnosis: Likely lumbar radiculopathy, sciatica and strain of lumbar region Critical Care Time Critical Care Time Critical Care Time: No Discharge Plan Discharge Clinical Impression: Lumbar radiculopathy Patient Disposition: Home Condition: Stable Instructions: Back Pain (ED) Additional Instructions: Return to the ER if you experience weakness, numbness, bowel/bladder incontinence, or any other symptoms that are concerning to you Rest, use ice/heat, take anti-inflammatories (Aleve, Ibuprofen, Naproxen, etc) or Tylenol as needed for pain as well as muscle relaxer (Flexeril) as needed for pain. Muscle relaxers can make you drowsy, do not drive if you take this. Methylprednisolone as prescribed Follow up with your primary care doctor Patient Language: Martiniquais Prescriptions: New methylprednisolone 4 mg tablets,dose pack See Rx Instructions .ROUTE .COMPLEX Qty: 21 0RF Rx Instructions: orally per package directions cyclobenzaprine 10 mg tablet 10 mg PO TID PRN (Reason: muscle spasm) Qty: 10 0RF Follow-up/Referrals: PHYSICIAN NOT ON STAFF,NONSTAFF [Primary Care Provider] - Ryan Carpio M.D. [Physician] - Stand Alone Forms: Work/School Release IP
[2024-11-19] MEDS: ACETAMINOPHEN 500 MG TABLET 1000 MG PO (19:19)
[2024-11-19] MEDS: diazePAM INJ (*CRX) 10 MG/2 ML SYRINGE 5 MG IM (19:19)
[2024-11-19] MEDS: LIDOCAINE 5% PATCH 1 PATCH TRANSDERM (19:19)
[2024-11-19 19:27] VITALS: BP 137/71; PULSE 81; RESP 18; TEMP 36.9; O2SAT 99
== END 2024-11-19 19:28 | disposition home or self-care (01) ==
PROVIDERS: Emergency Provider Physician Assistant
DX: M54.16 Radiculopathy, lumbar region (principal)
CPT/HCPCS: 96372; 99283; A9270; J3360

== ENCOUNTER 2024-12-29 07:00 | Emergency (ER) | payer OTHER, SELFPAY ==
--- NOTE | ~2024-12-29 | US_ITS ---
EXAMINATION: US pelvic complete w TV DATE: 12/29/2024 09:52 INDICATION: Vaginal bleeding TECHNIQUE: Multiple transabdominal sonographic images of the pelvis were obtained. COMPARISON: None. FINDINGS: The uterus measures 12.0 x 5.1 x 6.2 cm. The endometrial complex measures 5 mm in thickness. Endometrial complex eccentric with position and posteriorly lymph node with subtle heterogeneous echogenicity to the asymmetrically thickened more anterior uterine body. No clearly defined fibroid and would favor adenomyosis. Minimal amount of anechoic fluid in the endocervical canal. The left ovary measures 1.8 x 1.3 x 1.2 cm. There is a small amount of ovarian tissue along the periphery of a 5.6 x 3.1 x 3.8 cm anechoic likely right ovarian cyst. Vascular flow identified at both ovaries on color Doppler. There is minimal amount of anechoic free fluid at the right adnexa. IMPRESSION: 1. Asymmetric thickening of the wall of the anterior uterine body with heterogeneous axis but without clearly defined mass and would favor adenomyosis. 2. 5.6 similar simple appearing right ovarian cyst. Reviewed, dictated and finalized at location A. IMPRESSION: 1. Asymmetric thickening of the wall of the anterior uterine body with heteroge neous axis but without clearly defined mass and would favor adenomyosis. 2. 5.6 similar simple appearing right ovarian cyst.
[2024-12-29 07:09] VITALS: O2SAT 100
[2024-12-29 07:11] VITALS: BP 146/96; PULSE 91; RESP 14; TEMP 36.7; O2SAT 100
[2024-12-29 07:34] LABS: BEDSIDEPREGUCG Negative (Negative)
[2024-12-29 07:54] LABS: Hematocrit 33.9 % (37.0-47.0); Hemoglobin 10.3 g/dL (12.0-15.0); Immature Granulocyte Percent A 0.2 % (0-0.5); Lymphocytes Absolute Auto 1.53 K/mm3 (0.9-3.2); Mean Corpuscular HGB Conc 30.4 g/dl (32-36); Mean Corpuscular Hemoglobin 23.0 pg (26-34); Mean Corpuscular Volume 75.7 fl (80-100); Nucleated Red Blood Cells Absolute Auto 0.000 K/mm3 (0.0-0.012); Nucleated Red Blood Cells Perc 0.0 % (0.0-0.2); Platelet Count Result 255 k/mm3 (150-375); Red Blood Count 4.48 M/mm3 (4.2-5.4); White Blood Count 5.8 K/mm3 (4.5-10.0)
[2024-12-29 08:02] LABS: Anion Gap 5 mmol/L (4-12); Blood Urea Nitrogen 13 mg/dL (7-17); Calcium 8.3 mg/dL (8.4-10.2); Carbon Dioxide 25 mmol/L (22-30); Chloride 105 mmol/L (98-107); Estimated CRCL calculation 66 ml/min; Estimated Glomerular Filt Rate > 60; Glucose 84 mg/dL (65-110); Potassium 4.1 mmol/L (3.4-5.0); Sodium 135 mmol/L (137-145)
[2024-12-29 08:20] LABS: Beta HCG Quantitative < 2.39 mIU/ML
[2024-12-29 08:38] LABS: INR 0.9; Prothrombin Time 11.9 Seconds (11.1-14.7)
--- NOTE | 2024-12-29 09:09 | PC.NURSE ---
Pt to u/s via w/c at this time.
[2024-12-29 09:59] VITALS: BP 140/90; PULSE 74; RESP 14; O2SAT 100
--- NOTE | 2024-12-29 11:52 | ED.FEMALEGU ---
HPI - Female Genitourinary General Chief complaint: Vaginal Bleeding Stated complaint: Spotting x 1 month Time Seen by Provider: 12/29/24 07:02 Source: patient Mode of arrival: ambulatory Limitations: no limitations History of Present Illness HPI Narrative: 44-year-old otherwise healthy here with a complains of intermittent vaginal bleeding since the beginning of the month. Patient states that she occasionally has spotting at times and at times heavy bleeding with few blood clots. She also complains of occasional lower abdominal cramping. Denies being lightheaded or dizzy. Has not seen OBGYN the recent past. MD elicited complaint: vaginal bleeding Onset (ago): week(s) (3) Consistency: intermittent Exacerbating factors: none Relieving factors: none Associated symptoms: denies other symptoms Related Data Allergies Allergy/AdvReac Type Severity Reaction Status Date / Time No Known Allergies Allergy Verified 12/29/24 07:00 Review of Systems Review of Systems: All systems reviewed & are unremarkable except as noted in HPI and below Constitutional: Constitutional: Reports no additional constitutional complaints Eyes: Eyes: Reports no additional eye complaints ENT: Reports system reviewed and no additional complaints, except as documented Cardiovascular: Cardiovascular: Reports no additional cardiovascular complaints Respiratory: Respiratory: Reports no additional respiratory complaints Gastrointestinal: Gastrointestinal: Reports no additional gastrointestinal complaints Genitourinary: Genitourinary: Reports abnormal vaginal bleeding Musculoskeletal: Musculoskeletal: Reports no additional musculoskeletal complaints Neurologic: Reports system reviewed and no additional complaints, except as documented Psychiatric: Psychiatric: Reports no additional psychiatric complaints PMFSH Social History Social History Substance use type: does not use Exam Narrative: GENERAL: Well-appearing, well-nourished, and in no acute distress. HEAD: Normocephalic, atraumatic. EYES: PERRLA and EOMI. ENT: Nares clear, no rhinorrhea or epistaxis. Mucous membranes moist. NECK: Supple. CHEST: Clear to auscultation. No respiratory distress. HEART: Regular rate and rhythm. No murmur heard. Normal peripheral pulses. ABDOMEN: Soft, nontender, nondistended, normal active bowel sounds. EXTREMITIES: Normal range of motion. No edema. SKIN: Warm, dry, no rash. NEURO: No focal deficits. Alert and oriented x3. PSYCH: Normal mood and affect. Course Course Emergency Course: Notified her about the lab work, ultrasound findings. Recommended her to follow-up with the OBGYN in the next few days. Vital Signs Vital signs: Vital Signs Pulse Oximetry 100 12/29/24 07:09 Temperature 36.7 C 12/29/24 07:11 Pulse Rate 74 12/29/24 09:59 Respiratory Rate 14 12/29/24 09:59 Blood Pressure 140/90 12/29/24 09:59 Pulse Oximetry 100 12/29/24 09:59 Oxygen Delivery Room Air 12/29/24 07:11 MDM - Female Genitourinary Differential Diagnosis Differential diagnosis: Likely dysmenorrhea Medical Records Attestation: I reviewed the patient's medical records. Lab Data Attestation: I reviewed the patient's lab results. 12/29/24 07:44 12/29/24 07:44 Labs: Lab Results 12/29/24 12/29/24 Range/Units 07:30 07:44 WBC 5.8 (4.5-10.0) K/mm3 RBC 4.48 (4.2-5.4) M/mm3 Hgb 10.3 L (12.0-15.0) g/dL Hct 33.9 L (37.0-47.0) % MCV 75.7 L (80-100) fl MCH 23.0 L (26-34) pg MCHC 30.4 L (32-36) g/dl RDW 19.2 H (11.5-14.5) % Plt Count 255 (150-375) k/mm3 MPV 9.6 (7.4-10.4) fl Immature Gran % (Auto) 0.2 (0-0.5) % Neut % (Auto) 61.7 (45.5-73.1) % Lymph % (Auto) 26.5 (18.3-44.2) % Haskell % (Auto) 9.2 H (2.6-8.5) % Eos % (Auto) 2.1 (0-4.4) % Baso % (Auto) 0.3 (0.2-1.2) % Lymph # (Auto) 1.53 (0.9-3.2) K/mm3 Haskell # (Auto) 0.5 (0.1-0.6) K/mm3 Eos # (Auto) 0.1 (0-0.3) K/mm3 Baso # (Auto) 0.0 (0.0-0.1) K/mm3 Abs Immat Gran (auto) 0.01 (0.00-0.031) K/mm3 Absolute Neuts (auto) 3.6 (1.3-6.7) K/mm3 Absolute Nucleated RBC 0.000 (0.0-0.012) K/mm3 Nucleated RBC % 0.0 (0.0-0.2) % PT 11.9 (11.1-14.7) Seconds INR 0.9 Sodium 135 L (137-145) mmol/L Potassium 4.1 (3.4-5.0) mmol/L Chloride 105 (98-107) mmol/L Carbon Dioxide 25 (22-30) mmol/L Anion Gap 5 (4-12) mmol/L BUN 13 (7-17) mg/dL Creatinine 0.86 (0.7-1.0) mg/dL Estim Creat Clear Calc 66 ml/min Estimated GFR > 60 (59 - ) Glucose 84 (65-110) mg/dL Calcium 8.3 L (8.4-10.2) mg/dL Beta HCG, Quant < 2.39 mIU/ML POC Urine HCG, Qual Negative (Negative) Imaging Data Radiologist's impression: ITS Impressions Pelvic/Transvag US 12/29/24 10:36 IMPRESSION: 1. Asymmetric thickening of the wall of the anterior uterine body with heterogeneous axis but without clearly defined mass and would favor adenomyosis. 2. 5.6 similar simple appearing right ovarian cyst. Discharge Plan Discharge Clinical Impression: Dysfunctional uterine bleeding Patient Disposition: Home Condition: Stable Instructions: Abnormal (Dysfunctional) Uterine Bleeding (ED) Additional Instructions: follow with OB , number given below Patient Language: Citizen Of [place] Prescriptions: No Action methylprednisolone 4 mg tablets,dose pack See Rx Instructions .ROUTE .COMPLEX Qty: 21 0RF Rx Instructions: orally per package directions cyclobenzaprine 10 mg tablet 10 mg PO TID PRN (Reason: muscle spasm) Qty: 10 0RF Follow-up/Referrals: Brannon Chapin MD [Physician, PROFESSOR SCULPTURE] PHYSICIAN NOT ON STAFF,NONSTAFF [Primary Care Provider] Time of Disposition: 11:53
== END 2024-12-29 12:00 | disposition home or self-care (01) ==
PROVIDERS: Emergency Provider Family Medicine
DX: N93.8 Other specified abnormal uterine and vaginal bleeding (principal); N83.291 Other ovarian cyst, right side
CPT/HCPCS: 36415; 76830; 76856; 80048; 81025; 84702; 85025; 85610; 99284